=== PATIENT | female | born 1940 | race Caucasian/White ===

== ENCOUNTER → 2024-05-30 14:06 | Outpatient (CLI) | payer MEDICARE, OTHER, SELFPAY | PROVIDERS: PCP Nurse Practitioner; Referring Provider Dermatology MOHS-Micrographic Surgery; Visit Provider Physician Assistant | DX: T81.89XA Other complications of procedures, not elsewhere classified, initial encounter (principal); L98.8 Other specified disorders of the skin and subcutaneous tissue; S81.802A Unspecified open wound, left lower leg, initial encounter; C44.92 Squamous cell carcinoma of skin, unspecified; Z79.82 Long term (current) use of aspirin | CPT/HCPCS: 11042; 99203; 99213 ==

== ENCOUNTER → 2024-06-04 13:37 | Outpatient (CLI) | payer MEDICARE, OTHER, SELFPAY | PROVIDERS: PCP Nurse Practitioner; Referring Provider Dermatology MOHS-Micrographic Surgery; Visit Provider Surgery | DX: T81.89XA Other complications of procedures, not elsewhere classified, initial encounter (principal); L98.8 Other specified disorders of the skin and subcutaneous tissue; S81.802A Unspecified open wound, left lower leg, initial encounter; R60.0 Localized edema | CPT/HCPCS: 29581 ==

== ENCOUNTER → 2024-06-06 10:49 | Outpatient (CLI) | payer MEDICARE, SELFPAY | LOC: WC 10:50 | PROVIDERS: PCP Nurse Practitioner; Referring Provider Dermatology MOHS-Micrographic Surgery; Visit Provider Surgery | DX: T81.89XA Other complications of procedures, not elsewhere classified, initial encounter (principal); S81.802A Unspecified open wound, left lower leg, initial encounter; C44.92 Squamous cell carcinoma of skin, unspecified | CPT/HCPCS: 11042; 99213 ==

== ENCOUNTER → 2024-06-09 10:55 | Outpatient (CLI) | payer MEDICARE, SELFPAY | PROVIDERS: PCP Nurse Practitioner; Referring Provider Nurse Practitioner; Visit Provider Surgery | DX: T81.89XA Other complications of procedures, not elsewhere classified, initial encounter (principal); S81.802A Unspecified open wound, left lower leg, initial encounter; R60.0 Localized edema | CPT/HCPCS: 29581 ==

== ENCOUNTER → 2024-06-13 14:52 | Outpatient (CLI) | payer MEDICARE, SELFPAY | LOC: WC 14:53 | PROVIDERS: PCP Nurse Practitioner; Referring Provider Dermatology MOHS-Micrographic Surgery; Visit Provider Physician Assistant | DX: T81.89XA Other complications of procedures, not elsewhere classified, initial encounter (principal); S81.802A Unspecified open wound, left lower leg, initial encounter; C44.92 Squamous cell carcinoma of skin, unspecified | CPT/HCPCS: 11042; 99213 ==

== ENCOUNTER → 2024-06-20 13:38 | Outpatient (CLI) | payer MEDICARE, SELFPAY | LOC: WC 13:41 | PROVIDERS: PCP Nurse Practitioner; Referring Provider Dermatology MOHS-Micrographic Surgery; Visit Provider Surgery | DX: S81.802A Unspecified open wound, left lower leg, initial encounter (principal); T81.89XA Other complications of procedures, not elsewhere classified, initial encounter; R60.0 Localized edema; C44.92 Squamous cell carcinoma of skin, unspecified | CPT/HCPCS: 11042; 99213 ==

== ENCOUNTER → 2024-07-04 10:37 | Outpatient (CLI) | payer MEDICARE, OTHER, SELFPAY | PROVIDERS: PCP Nurse Practitioner; Referring Provider Nurse Practitioner; Visit Provider Surgery | DX: T81.89XA Other complications of procedures, not elsewhere classified, initial encounter (principal); S81.802A Unspecified open wound, left lower leg, initial encounter; C44.92 Squamous cell carcinoma of skin, unspecified | CPT/HCPCS: 11042; 99213 ==

== ENCOUNTER → 2024-07-11 09:53 | Outpatient (CLI) | payer MEDICARE, OTHER, SELFPAY ==
--- NOTE | 2024-07-11 | OV.WND_ITS ---
PROGRESS NOTE DETAILS PATIENT NAME: SAMANTA RANKIN PATIENT NUMBER: [id number] CLINICIAN: YULISSA CARBALLO RN PATIENT DATE OF : 1940 PHYSICIAN / COLLECTION TEAM LEAD: CLAIRE ESTRADA PA-C PATIENT SUBJECTIVE CHIEF COMPLAINT THIS INFORMATION WAS OBTAINED FROM THE PATIENT. WOUND ON MY LEG GENERAL NOTES DRESSING ON LEFT LEG ALLERGIES SEPTRA, TETRACYCLINE, CLEOCIN HPI THIS INFORMATION WAS OBTAINED FROM THE PATIENT. LOCATION: LLE DURATION: 05/15/24 CONTEXT: SURGICAL THE PATIENT IS AN 83 YEAR OLD FEMALE WITH PMH OF GERD, SCC, BREAST CANCER HERE FOR MOH'S SURGERY WOUND TO LEFT PRE -TIBIAL LEG, REFERRED BY DERMATOLOGY. SHE IS CURRENTLY RECEIVING DRESSING CHANGES WITH HYDROFERA BLUE AND PROMOGRAN WITH PERSONAL COMPRESSION. SHE HAS NOT NOTED ANY REDNESS OR SWELLING NOR HAS HE HAD ANY FEVER OR CHILLS. THE PATIENT IS ON A HIGH PROTEIN DIET. ON EXAM TODAY THERE IS GOOD GRANULATION TISSUE AND MEASUREMENTS ARE IMPROVED, NO SIGN OF INFECTION. THE PATIENT HAS BEEN APPROVED FOR THE USE OF SKIN SUBSTITUTES. LABS: 05/30/24 DUSTIN LEFT 1.25, RIGHT 1.25 MEDICAL HISTORY THIS INFORMATION WAS OBTAINED FROM THE CHART, PATIENT. PATIENT HAS A MEDICAL HISTORY OF: ARTHRITIS GASTRO ESOPH. 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 YES? COMPLETE ALL QUESTIONS.: YES SAMANTA RANKIN [id number] 1940 LOCATION OF CANCER: LEFT BREAST. SKIN CANCER LEFT LOWER LEG SURGICAL HISTORY THIS INFORMATION WAS OBTAINED FROM THE CHART, PATIENT. PATIENT HAS A SURGICAL HISTORY OF: BIOPSY OF BREAST- DENTAL SURGERY - H/O: TUBAL LIGATION- HISTORY OF APPENDECTOMY- HISTORY OF BILATERAL MASTECTOMY- KIDNEY BIOPSY- SURGICAL BIOPSY OF SKIN- ECTOPIC - OBJECTIVE VITALS HEIGHT/LENGTH: 67 IN (170.18 CM), WEIGHT: 159.7 LBS (72.59 KGS), BMI: 25, TEMPERATURE: 99.1 ?F (37.28 ?C), PULSE: 92 BPM, RESPIRATORY RATE: 16 BREATHS/MIN, BLOOD PRESSURE: 124/71 MMHG, PULSE OXIMETRY: 85 %. PHYSICAL EXAM CONSTITUTIONAL: GENERALIZED WEAKNESS. IN NO APPARENT DISTRESS. GOOD ATTENTION TO HYGIENE AND BODY HABITS. ALERT AND ORIENTED X 3. WELL NOURISHED. VITAL SIGNS REVIEWED AND NOTED. BLOOD PRESSURE NORMAL. PULSE RATE AND RHYTHM REGULAR. AFEBRILE. WEIGHT WNL. WELL DEVELOPED, WELL NOURISHED, AND IN NO ACUTE DISTRESS. ALERT AND ORIENTED X3. AMBULATES AND IS ABLE TO CHANGE POSITION WITHOUT ASSISTANCE. ALERT AND ORIENTED X 3. RESPIRATORY: EVEN RESPIRATIONS WITHOUT USE OF ACCESSORY MUSCLES. NO INTERCOASTAL RETRACTIONS NOTED. EVEN AND NON LABORED RESPIRATION. CARDIOVASCULAR: SEE LOWER EXTREMITY ASSESSMENT WHEN APPLICABLE. THERE IS NO PERIPHERAL EDEMA, CYANOSIS OR PALLOR. EXTREMITIES ARE WARM AND WELL PERFUSED. CAPILLARY REFILL IS LESS THAN 2 SECONDS. INTEGUMENTARY (HAIR, SKIN): SEE WOUND DESCRIPTION. NEUROLOGICAL: SENSATION: SYMMETRIC FUNCTION BY INFORMAL OBSERVATION. PSYCHIATRIC: ORIENTATION TO TIME, PLACE AND PERSON: NORMAL AFFECT WITH NORMAL THOUGHT PATTERN. MOOD AND AFFECT: NORMAL AFFECT WITH NORMAL THOUGHT PATTERN. WOUND ASSESSMENT(S) WOUND #1 LEFT LEG - LOWER IS AN ACUTE FULL THICKNESS SURGICAL WOUND ACQUIRED ON 05/15/2024 AND HAS RECEIVED A STATUS OF NOT HEALED. INITIAL WOUND ENCOUNTER MEASUREMENTS ARE 1.1CM LENGTH X 1.1CM WIDTH X 0.1 CM DEPTH, WITH AN AREA OF 1.21 SQ CM AND A VOLUME OF 0.121 CUBIC CM.INITIAL WOUND ENCOUNTER PREVIOUS MEASUREMENTS FROM 07/04/2024 ARE 1.2CM LENGTH X 1.2CM WIDTH X 0.2CM DEPTH, WITH AN AREA OF 1.44 SQ CM AND A VOLUME OF 0.288 CUBIC CM. ADIPOSE IS EXPOSED. NO TUNNELING HAS BEEN NOTED. NO SINUS TRACT HAS BEEN NOTED. NO UNDERMINING HAS BEEN NOTED. THERE IS A MODERATE AMOUNT OF SEROSANGUINEOUS DRAINAGE NOTED WHICH HAS NO ODOR. THE PATIENT REPORTS A WOUND PAIN OF LEVEL 0/10. THE WOUND MARGIN IS ROLLED WOUND BED HAS YES, BRIGHT RED, SPONGY, GRANULATION, YES SLOUGH, NO ESCHAR, NO EPITHELIALIZATION. THE PERIWOUND SKIN EXHIBITED EDEMA. THE PERIWOUND SKIN DID NOT EXHIBIT BRAWNY INDURATION, EXCORIATION, INDURATION, CALLUS, CREPITUS, FLUCTUANCE, RASH, MACERATION, ATROPHIE ARTUR, CYANOSIS, SAMANTA RANKIN [id number] 1940 ECCHYMOSIS, ERYTHEMA, HEMOSIDEROSIS, PALLOR AND RUBOR. THE PERIWOUND SKIN WAS MOIST. THE PERIWOUND SKIN WAS NOT FRIABLE AND DRY/SCALY. THE TEMPERATURE OF THE PERIWOUND SKIN IS WNL. PERIWOUND SKIN DOES NOT EXHIBIT SIGNS OR SYMPTOMS OF INFECTION. LOCAL PULSE IS PALPABLE. 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 A SKIN/SUBCUTANEOUS TISSUE LEVEL SURGICAL DEBRIDEMENT WITH A TOTAL AREA DEBRIDED OF 1.21 SQ CM. WAS PERFORMED BY CLAIRE ESTRADA PA-C. HYPERGRANULATION AND SUBCUTANEOUS WERE REMOVED ALONG WITH DEVITALIZED TISSUE: BIOFILM, FIBRIN AND SLOUGH. THE FOLLOWING INSTRUMENT(S) WERE USED: CURETTE. PAIN CONTROL WAS ACHIEVED USING EMLA LIDOCAINE/PRILOCAINE 2.5%/2.5%. A TIME OUT WAS CONDUCTED PRIOR TO THE START OF THE PROCEDURE. A MINIMAL AMOUNT OF BLEEDING WAS CONTROLLED WITH SILVER NITRATE. THE PATIENT TOLERATED THE PROCEDURE WITH A PAIN LEVEL OF 0 THROUGHOUT AND A PAIN LEVEL OF 0 FOLLOWING THE PROCEDURE. POST DEBRIDEMENT MEASUREMENTS: 1.1CM LENGTH X 1.1CM WIDTH X 0.2CM DEPTH; WITH AN AREA OF 1.21 SQ CM AND A VOLUME OF 0.242 CUBIC CM. ADDITIONAL INFORMATION MUSCLE FASCIA OR BONE REMOVED AND SENT TO PATHOLOGY?: NO PLAN ADDITIONAL ORDERS: HAND HYGIENE HAND HYGIENE - WASH HANDS BEFORE AND AFTER WOUND CARE. CALL THE WOUND CENTER AT [phone] IF YOU HAVE SIGNS OR SYMPTOMS OF INFECTION, FEVER CHILLS OR SHAKES, INCREASED DRAINAGE, INCREASED ODOR OR UNUSUAL REDNESS. AFTER WOUND CENTER HOURS PLEASE NOTIFY YOUR PCP OR GO TO THE EMERGENCY ROOM. CLEANSER CLEANSE WOUND WITH NORMAL SALINE CLEANSE WOUND AND PEDRO LUIS WOUND WITH A NON-CYTOTOXIC WOUND CLEANSER. MAY SHOWER, LEAVE WOUND DRESSING INTACT. COVER WOUND DRESSING WITH A WATERPROOF BARRIER. KEEP DRESSING DRY. NO BATHS PLEASE. PROCEDURE / ANESTHETIC 5% TOPICAL LIDOCAINE TO WOUND BED PRIOR TO PROCEDURE, IN CLINIC ONLY. DRESSING ORDERS APPLY DRESSING(S) AND SECURE WITH: - PROMOGRAN COLLAGEN MOISTENED WITH SALINE SOLUTION OR DISTILLED WATER, HYDROFERA BLUE CLASSIC ( THE STIFF HYDROFERA) MOISTENED WITH SALINE SOLUTION OR DISTILLED WATER FOR 10 SECONDS AND WRING OUT EXCESS MOISTURE, SILICONE TAPE DRESSING CHANGE FREQUENCY CHANGE DRESSING EVERY OTHER DAY. SAMANTA RANKIN [id number] 1940 COMPRESSION/EDEMA CONTROL APPLY KNEE-HIGH GRADIENT COMPRESSION STOCKINGS AT 20-30MMHG - PERSONAL COMPRESSION STOCKINGS DIETARY TAKE VITAMIN C 1000MG BY MOUTH DAILY. TAKE ZINC 25MG BY MOUTH DAILY. INCREASE THE PROTEIN IN YOUR DIET. FOLLOW-UP APPOINTMENTS WE ARE PLACING AN ORDER FOR WOUND SUPPLIES ON YOUR BEHALF WITH [facility]. IF YOU HAVE NOT RECEIVED YOUR ORDER WITHIN 3 BUSINESS DAYS, PLEASE CALL [facility] AT [phone] TO SPEAK WITH A ORAL SURGERY TECHNICIAN OR EMAIL: RETURN APPOINTMENT 1 WEEK SCRIBING ATTESTATION I ATTEST, THE NURSE, THAT I SCRIBED THESE ORDERS FOR THE WOUND CARE PROVIDER. PROVIDER REVIEW AND ATTESTATION: REVIEWED HOSPITAL RECORDS. DISCUSSED THE PLAN OF CARE @ BEDSIDE WITH - PATIENT I AGREE AND ATTEST TO THE ABOVE INFORMATION PROVIDED FROM OTHER LICENSED PROFESSIONALS. PLAN OF CARE: 01. ENSURE/ESTABLISH OPTIMAL BLOOD FLOW : - COMPLETE LOWER EXTREMITY ASSESSMENT STATUS: COMPLETED DATE: 05/30/2024 02. ASSESS FOR/TREAT INFECTION : - EVALUATE FOR SIGNS AND SYMPTOMS OF INFECTION AND DOCUMENT FINDINGS. STATUS: CONTINUED DATE: 07/11/2024 - OBTAIN CULTURE AND SENSITIVITY (CANDS) OR TISSUE CULTURE WHEN INFECTION IS SUSPECTED. (NOTE:) CONSIDER REPEATING WHEN WOUND HEALING <40% AFTER 30 DAYS OF WOUND CARE. STATUS: CONTINUED DATE: 07/11/2024 - ORDER APPROPRIATE ANTIBIOTICS BASED ON PATIENT PRESENTATION AND CULTURE AND SENSITIVITY RESULTS. INSTRUCT PATIENT ON THE IMPORTANCE OF TAKING MEDICATION PRESCRIBED. 03. DEBRIDE WEEKLY OR MORE OFTEN PRN : - EVALUATE PATIENT IN CENTER WEEKLY TO ASSESS WOUND BED AND MARGINS FOR NEED FOR DEBRIDEMENT. STATUS: CONTINUED DATE: 07/11/2024 - DEBRIDEMENT BY ANY METHOD TO REMOVE DEVITALIZED/NECROTIC TISSUE TO PROMOTE HEALING AND PREVENT FURTHER COMPLICATIONS. GOAL IS TO STIMULATE AND/OR MAINTAIN ACUTE PHASE OF WOUND HEALING BY REDUCING BACTERIAL BURDEN AND DEVITALIZED/NON-VIABLE TISSUE. STATUS: CONTINUED DATE: 07/11/2024 04. OPTIMIZE GLUCOSE CONTROL AND NUTRITION : - COMPLETE A NUTRITION RISK ASSESSMENT. STATUS: COMPLETED DATE: 05/30/2024 05. OFFLOADING PLAN : - EVALUATE PLAN FOR OFFLOADING STATUS: CONTINUED DATE: 07/11/2024 06. OPTIMIZE HOST FACTORS: - ASSESS AND REVIEW PATIENT HISTORY FOR WOUND ETIOLOGY, CO-MORBID CONDITIONS, MEDICATION REGIME, AND SMOKING HISTORY. STATUS: COMPLETED DATE: 05/30/2024 - ASSESS LIFESTYLE FACTORS SUCH SMOKING, ALCOHOL/DRUG ABUSE, EATING HABITS/MALNUTRITION AND ACTIVITY LEVEL. 07. DRESSING SELECTION : - EVALUATE FOR DRESSING-RELATED FACTORS, SUCH AVAILABILITY, WEAR TIME, ADAPTABILITY AND USE TO BETTER OPTIMIZE WOUND HEALING AND PATIENT COMPLIANCE. STATUS: CONTINUED DATE: 07/11/2024 - CHOOSE TOPICAL TREATMENTS AND/OR DRESSING BASED ON WOUND TYPE AND APPEARANCE, PERIWOUND SKIN SAMANTA RANKIN [id number] 1940 CONDITION, WOUND SIZE AND DEPTH, ANATOMIC LOCATION, VOLUME OF EXUDATE, EDEMA IN THE LOWER EXTREMITIES, AND RISK OR PRESENCE OF INFECTION. STATUS: CONTINUED DATE: 07/11/2024 08. ADVANCED MODALITIES : - EVALUATE FOR APPROPRIATENESS OF HYPERBARIC OXYGEN THERAPY. STATUS: COMPLETED DATE: 05/30/2024 09. FALL PREVENTION : - COMPLETE FALL ASSESSMENT. STATUS: COMPLETED DATE: 05/30/2024 10. PAIN MANAGEMENT : - COMPLETE PAIN ASSESSMENT STATUS: COMPLETED DATE: 05/30/2024 11. MEASURABLE GOALS FOR WOUND HEALING AND/OR HYPERBARIC OXYGEN THERAPY : - REVIEWED, NOT APPLICABLE 12. DURATION/FREQUENCY OF WOUND CARE VISITS : - 1X WEEKLY FOR 30 DAYS STATUS: CONTINUED DATE: 07/11/2024 CONTINUE PROMOGRAN WITH HYDROFERA BLUE CLASSIC PERSONAL COMPRESSION CONSIDER SKIN SUBSTITUTE IF NO IMPROVEMENT ELECTRONIC SIGNATURE(S) SIGNED BY: DATE: CLAIRE ESTRADA PA-C 07/14/2024 00:35:14 (PT) ENTERED BY: CLAIRE ESTRDAA PA-C ON 07/14/2024 00:34:55 (PT) SAMANTA RANKIN [id number] 1940
== END ==
PROVIDERS: PCP Nurse Practitioner; Referring Provider Nurse Practitioner; Visit Provider Physician Assistant
DX: T81.89XA Other complications of procedures, not elsewhere classified, initial encounter (principal); S81.802A Unspecified open wound, left lower leg, initial encounter; C44.92 Squamous cell carcinoma of skin, unspecified; R60.0 Localized edema
CPT/HCPCS: 11042; 99213

== ENCOUNTER → 2024-07-18 11:13 | Outpatient (CLI) | payer MEDICARE, OTHER, SELFPAY ==
--- NOTE | 2024-07-18 | OV.WND_ITS ---
PROGRESS NOTE DETAILS PATIENT NAME: SAMANTA RANKIN PATIENT NUMBER: [id number] CLINICIAN: HEMANT KEYES R.N. PATIENT DATE OF : 1940 PHYSICIAN / TURNING MACHINE OPERATOR HELPER: CLAIRE ESTRADA PA-C PATIENT SUBJECTIVE CHIEF COMPLAINT THIS INFORMATION WAS OBTAINED FROM THE PATIENT. EVERYTHING IS FINE, NO CONCERNS. GENERAL NOTES SURGICAL WOUND OF LEFT LEG. ALLERGIES SEPTRA, TETRACYCLINE, CLEOCIN HPI THIS INFORMATION WAS OBTAINED FROM THE PATIENT. LOCATION: LLE DURATION: 05/15/24 CONTEXT: SURGICAL THE PATIENT IS AN 83 YEAR OLD FEMALE WITH PMH OF GERD, SCC, BREAST CANCER HERE FOR MOH'S SURGERY WOUND TO LEFT PRE -TIBIAL LEG, REFERRED BY DERMATOLOGY. SHE IS CURRENTLY RECEIVING DRESSING CHANGES WITH HYDROFERA BLUE AND PROMOGRAN WITH PERSONAL COMPRESSION. SHE HAS NOT NOTED ANY REDNESS OR SWELLING. SHE HAS A LOW GRADE TEMP TODAY OF WHICH SHE WAS UNAWARE AND SHE DENIES ANY COLD SYMPTOMS OR CHANGES TO UNDERLYING HEALTH. THE PATIENT IS ON A HIGH PROTEIN DIET. ON EXAM TODAY THERE IS GOOD GRANULATION TISSUE AND MEASUREMENTS ARE IMPROVED, NO SIGN OF INFECTION. WOUND SHOWS 86% IMPROVEMENT SINCE INITIATION OF WOUND CARE. THE PATIENT HAS BEEN APPROVED FOR THE USE OF SKIN SUBSTITUTES. LABS: 05/30/24 DUSTIN LEFT 1.25, RIGHT 1.25 MEDICAL HISTORY THIS INFORMATION WAS OBTAINED FROM THE CHART, PATIENT. PATIENT HAS A MEDICAL HISTORY OF: ARTHRITIS GASTRO ESOPH. REFLUX DISEASE (GERD) HEARING LOSS MALIGNANT TUMOR OF BREAST SKIN CANCER - 03/11/2024 BREAST CANCER - 05/14/1977 ADDITIONAL INFORMATION SAMANTA RANKIN [id number] 1940 DOES PATIENT HAVE A HISTORY OF CANCER? YES? COMPLETE ALL QUESTIONS.: YES LOCATION OF CANCER: LEFT BREAST. SKIN CANCER LEFT LOWER LEG SURGICAL HISTORY THIS INFORMATION WAS OBTAINED FROM THE CHART, PATIENT. PATIENT HAS A SURGICAL HISTORY OF: BIOPSY OF BREAST- DENTAL SURGERY - H/O: TUBAL LIGATION- HISTORY OF APPENDECTOMY- HISTORY OF BILATERAL MASTECTOMY- KIDNEY BIOPSY- SURGICAL BIOPSY OF SKIN- ECTOPIC - OBJECTIVE VITALS HEIGHT/LENGTH: 67 IN (170.18 CM), WEIGHT: 159.7 LBS (72.59 KGS), BMI: 25, TEMPERATURE: 99.3 ?F (37.39 ?C), PULSE: 87 BPM, RESPIRATORY RATE: 16 BREATHS/MIN, BLOOD PRESSURE: 128/62 MMHG, PULSE OXIMETRY: 98 %. PHYSICAL EXAM CONSTITUTIONAL: GENERALIZED WEAKNESS. IN NO APPARENT DISTRESS. GOOD ATTENTION TO HYGIENE AND BODY HABITS. ALERT AND ORIENTED X 3. WELL NOURISHED. VITAL SIGNS REVIEWED AND NOTED. BLOOD PRESSURE NORMAL. PULSE RATE AND RHYTHM REGULAR. AFEBRILE. WEIGHT WNL. WELL DEVELOPED, WELL NOURISHED, AND IN NO ACUTE DISTRESS. ALERT AND ORIENTED X3. AMBULATES AND IS ABLE TO CHANGE POSITION WITHOUT ASSISTANCE. ALERT AND ORIENTED X 3. RESPIRATORY: EVEN RESPIRATIONS WITHOUT USE OF ACCESSORY MUSCLES. NO INTERCOASTAL RETRACTIONS NOTED. EVEN AND NON LABORED RESPIRATION. CARDIOVASCULAR: SEE LOWER EXTREMITY ASSESSMENT WHEN APPLICABLE. THERE IS NO PERIPHERAL EDEMA, CYANOSIS OR PALLOR. EXTREMITIES ARE WARM AND WELL PERFUSED. CAPILLARY REFILL IS LESS THAN 2 SECONDS. INTEGUMENTARY (HAIR, SKIN): SEE WOUND DESCRIPTION. NEUROLOGICAL: SENSATION: SYMMETRIC FUNCTION BY INFORMAL OBSERVATION. PSYCHIATRIC: ORIENTATION TO TIME, PLACE AND PERSON: NORMAL AFFECT WITH NORMAL THOUGHT PATTERN. MOOD AND AFFECT: NORMAL AFFECT WITH NORMAL THOUGHT PATTERN. WOUND ASSESSMENT(S) WOUND #1 LEFT LEG - LOWER IS AN ACUTE FULL THICKNESS SURGICAL WOUND ACQUIRED ON 05/15/2024 AND HAS RECEIVED A STATUS OF NOT HEALED. INITIAL WOUND ENCOUNTER MEASUREMENTS ARE 0.6CM LENGTH X 1CM WIDTH X 0.1 CM DEPTH, WITH AN AREA OF 0.6 SQ CM AND A VOLUME OF 0.06 CUBIC CM.INITIAL WOUND ENCOUNTER PREVIOUS MEASUREMENTS FROM 07/11/2024 ARE 1.1CM LENGTH X 1.1CM WIDTH X 0.1CM DEPTH, WITH AN AREA OF 1.21 SQ CM AND A VOLUME OF 0.121 CUBIC CM. ADIPOSE IS EXPOSED. NO TUNNELING HAS BEEN NOTED. NO SINUS TRACT HAS BEEN NOTED. NO UNDERMINING HAS BEEN NOTED. THERE IS A MODERATE AMOUNT OF SEROSANGUINEOUS DRAINAGE NOTED WHICH HAS NO ODOR. THE PATIENT REPORTS A WOUND PAIN OF LEVEL 0/10. THE WOUND MARGIN IS ATTACHED WOUND BED HAS YES, BRIGHT RED, SPONGY, GRANULATION, YES SLOUGH, NO ESCHAR, NO EPITHELIALIZATION. THE PERIWOUND SKIN EXHIBITED EDEMA AND MACERATION. THE PERIWOUND SKIN DID NOT EXHIBIT PADMAJA RANKIN SAMANTA Delphine [id number] 1940 INDURATION, EXCORIATION, INDURATION, CALLUS, CREPITUS, FLUCTUANCE, RASH, ATROPHIE ARTUR, CYANOSIS, ECCHYMOSIS, ERYTHEMA, HEMOSIDEROSIS, PALLOR AND RUBOR. THE PERIWOUND SKIN WAS MOIST. THE PERIWOUND SKIN WAS NOT FRIABLE AND DRY/SCALY. THE TEMPERATURE OF THE PERIWOUND SKIN IS WNL. PERIWOUND SKIN DOES NOT EXHIBIT SIGNS OR SYMPTOMS OF INFECTION. LOCAL PULSE IS PALPABLE. 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 A SKIN/SUBCUTANEOUS TISSUE LEVEL SURGICAL DEBRIDEMENT WITH A TOTAL AREA DEBRIDED OF 0.6 SQ CM. WAS PERFORMED BY CLAIRE ESTRADA PA-C. SUBCUTANEOUS WAS REMOVED ALONG WITH DEVITALIZED TISSUE: BIOFILM AND SLOUGH. THE FOLLOWING INSTRUMENT(S) WERE USED: CURETTE. PAIN CONTROL WAS ACHIEVED USING EMLA LIDOCAINE/PRILOCAINE 2.5%/2.5%. A TIME OUT WAS CONDUCTED PRIOR TO THE START OF THE PROCEDURE. A MINIMAL AMOUNT OF BLEEDING WAS CONTROLLED WITH PRESSURE. THE PROCEDURE WAS TOLERATED WELL WITH A PAIN LEVEL OF 0 THROUGHOUT AND A PAIN LEVEL OF 0 FOLLOWING THE PROCEDURE. POST DEBRIDEMENT MEASUREMENTS: 0.6CM LENGTH X 1CM WIDTH X 0.2CM DEPTH; WITH AN AREA OF 0.6 SQ CM AND A VOLUME OF 0.12 CUBIC CM. ADDITIONAL INFORMATION MUSCLE FASCIA OR BONE REMOVED AND SENT TO PATHOLOGY?: NO PLAN WOUND ORDERS: WOUND #1 LEFT LEG - LOWER HAND HYGIENE HAND HYGIENE - WASH HANDS BEFORE AND AFTER WOUND CARE. CALL THE WOUND CENTER AT [phone] IF YOU HAVE SIGNS OR SYMPTOMS OF INFECTION, FEVER CHILLS OR SHAKES, INCREASED DRAINAGE, INCREASED ODOR OR UNUSUAL REDNESS. AFTER WOUND CENTER HOURS PLEASE NOTIFY YOUR PCP OR GO TO THE EMERGENCY ROOM. CLEANSER CLEANSE WOUND WITH NORMAL SALINE CLEANSE WOUND AND PEDRO LUIS WOUND WITH A NON-CYTOTOXIC WOUND CLEANSER. MAY SHOWER, LEAVE WOUND DRESSING INTACT. COVER WOUND DRESSING WITH A WATERPROOF BARRIER. KEEP DRESSING DRY. NO BATHS PLEASE. PROCEDURE / ANESTHETIC 5% TOPICAL LIDOCAINE TO WOUND BED PRIOR TO PROCEDURE, IN CLINIC ONLY. DRESSING ORDERS APPLY DRESSING(S) AND SECURE WITH: - PROMOGRAN COLLAGEN MOISTENED WITH SALINE SOLUTION OR DISTILLED WATER, HYDROFERA BLUE CLASSIC (THE STIFF HYDROFERA) MOISTENED WITH SALINE SOLUTION OR DISTILLED WATER FOR 10 SECONDS AND WRING OUT EXCESS MOISTURE, SILICONE TAPE. SAMANTA RANKIN [id number] 1940 DRESSING CHANGE FREQUENCY CHANGE DRESSING EVERY OTHER DAY. CHANGE DRESSING IF IT BECOMES SOILED OR WET. ADDITIONAL ORDERS: COMPRESSION/EDEMA CONTROL APPLY KNEE-HIGH GRADIENT COMPRESSION STOCKINGS AT 20-30MMHG - PERSONAL COMPRESSION STOCKINGS DIETARY TAKE VITAMIN C 1000MG BY MOUTH DAILY. TAKE ZINC 25MG BY MOUTH DAILY. INCREASE THE PROTEIN IN YOUR DIET. FOLLOW-UP APPOINTMENTS RETURN APPOINTMENT 1 WEEK SCRIBING ATTESTATION I ATTEST, THE NURSE, THAT I SCRIBED THESE ORDERS FOR THE WOUND CARE PROVIDER. PROVIDER REVIEW AND ATTESTATION: REVIEWED HOSPITAL RECORDS. DISCUSSED THE PLAN OF CARE @ BEDSIDE WITH - PATIENT I AGREE AND ATTEST TO THE ABOVE INFORMATION PROVIDED FROM OTHER LICENSED PROFESSIONALS. PLAN OF CARE: 01. ENSURE/ESTABLISH OPTIMAL BLOOD FLOW : - COMPLETE LOWER EXTREMITY ASSESSMENT STATUS: COMPLETED DATE: 05/30/2024 02. ASSESS FOR/TREAT INFECTION : - EVALUATE FOR SIGNS AND SYMPTOMS OF INFECTION AND DOCUMENT FINDINGS. STATUS: CONTINUED DATE: 07/11/2024 - OBTAIN CULTURE AND SENSITIVITY (CANDS) OR TISSUE CULTURE WHEN INFECTION IS SUSPECTED. (NOTE:) CONSIDER REPEATING WHEN WOUND HEALING <40% AFTER 30 DAYS OF WOUND CARE. STATUS: CONTINUED DATE: 07/11/2024 - ORDER APPROPRIATE ANTIBIOTICS BASED ON PATIENT PRESENTATION AND CULTURE AND SENSITIVITY RESULTS. INSTRUCT PATIENT ON THE IMPORTANCE OF TAKING MEDICATION PRESCRIBED. 03. DEBRIDE WEEKLY OR MORE OFTEN PRN : - EVALUATE PATIENT IN CENTER WEEKLY TO ASSESS WOUND BED AND MARGINS FOR NEED FOR DEBRIDEMENT. STATUS: CONTINUED DATE: 07/11/2024 - DEBRIDEMENT BY ANY METHOD TO REMOVE DEVITALIZED/NECROTIC TISSUE TO PROMOTE HEALING AND PREVENT FURTHER COMPLICATIONS. GOAL IS TO STIMULATE AND/OR MAINTAIN ACUTE PHASE OF WOUND HEALING BY REDUCING BACTERIAL BURDEN AND DEVITALIZED/NON-VIABLE TISSUE. STATUS: CONTINUED DATE: 07/11/2024 04. OPTIMIZE GLUCOSE CONTROL AND NUTRITION : - COMPLETE A NUTRITION RISK ASSESSMENT. STATUS: COMPLETED DATE: 05/30/2024 05. OFFLOADING PLAN : - EVALUATE PLAN FOR OFFLOADING STATUS: CONTINUED DATE: 07/11/2024 06. OPTIMIZE HOST FACTORS: - ASSESS AND REVIEW PATIENT HISTORY FOR WOUND ETIOLOGY, CO-MORBID CONDITIONS, MEDICATION REGIME, AND SMOKING HISTORY. STATUS: COMPLETED DATE: 05/30/2024 - ASSESS LIFESTYLE FACTORS SUCH SMOKING, ALCOHOL/DRUG ABUSE, EATING HABITS/MALNUTRITION AND ACTIVITY LEVEL. 07. DRESSING SELECTION : - EVALUATE FOR DRESSING-RELATED FACTORS, SUCH AVAILABILITY, WEAR TIME, ADAPTABILITY AND USE TO BETTER OPTIMIZE WOUND HEALING AND PATIENT COMPLIANCE. STATUS: CONTINUED DATE: 07/11/2024 SAMANTA RANKIN [id number] 1940 - CHOOSE TOPICAL TREATMENTS AND/OR DRESSING BASED ON WOUND TYPE AND APPEARANCE, PERIWOUND SKIN CONDITION, WOUND SIZE AND DEPTH, ANATOMIC LOCATION, VOLUME OF EXUDATE, EDEMA IN THE LOWER EXTREMITIES, AND RISK OR PRESENCE OF INFECTION. STATUS: CONTINUED DATE: 07/11/2024 08. ADVANCED MODALITIES : - EVALUATE FOR APPROPRIATENESS OF HYPERBARIC OXYGEN THERAPY. STATUS: COMPLETED DATE: 05/30/2024 09. FALL PREVENTION : - COMPLETE FALL ASSESSMENT. STATUS: COMPLETED DATE: 05/30/2024 10. PAIN MANAGEMENT : - COMPLETE PAIN ASSESSMENT STATUS: COMPLETED DATE: 05/30/2024 11. MEASURABLE GOALS FOR WOUND HEALING AND/OR HYPERBARIC OXYGEN THERAPY : - REVIEWED, NOT APPLICABLE 12. DURATION/FREQUENCY OF WOUND CARE VISITS : - 1X WEEKLY FOR 30 DAYS STATUS: CONTINUED DATE: 07/11/2024 DOING WELL DEBRIDEMENT TODAY CONTINUE PROMOGRAN WITH HYDROFERA BLUE CLASSIC, PERSONAL COMPRESSION RECHECK 1 WEEK ELECTRONIC SIGNATURE(S) SIGNED BY: DATE: CLAIRE ESTRADA PA-C 07/18/2024 12:45:54 (PT) ENTERED BY: CLAIRE ESTRADA PA-C ON 07/18/2024 12:45:39 (PT) SAMANTA RANKIN [id number] 1940
== END ==
PROVIDERS: PCP Nurse Practitioner; Referring Provider Dermatology MOHS-Micrographic Surgery; Visit Provider Physician Assistant
DX: T81.89XA Other complications of procedures, not elsewhere classified, initial encounter (principal); S81.802A Unspecified open wound, left lower leg, initial encounter; R60.0 Localized edema; C44.92 Squamous cell carcinoma of skin, unspecified
CPT/HCPCS: 11042; 99213

== ENCOUNTER → 2024-07-25 10:48 | Outpatient (CLI) | payer MEDICARE, OTHER, SELFPAY | PROVIDERS: PCP Nurse Practitioner; Referring Provider Dermatology MOHS-Micrographic Surgery; Visit Provider Physician Assistant | DX: T81.89XA Other complications of procedures, not elsewhere classified, initial encounter (principal); S81.802A Unspecified open wound, left lower leg, initial encounter; C44.92 Squamous cell carcinoma of skin, unspecified; R60.0 Localized edema | CPT/HCPCS: 11042; 99213 ==

== ENCOUNTER → 2024-08-01 10:42 | Outpatient (CLI) | payer MEDICARE, OTHER, SELFPAY ==
--- NOTE | 2024-08-01 | OV.WND_ITS ---
PROGRESS NOTE DETAILS PATIENT NAME: SAMANTA RANKIN PATIENT NUMBER: [id number] CLINICIAN: ROSCOE RUSHING RN PATIENT DATE OF : 1940 PHYSICIAN / MUSCULOSKELETAL PHYSICIAN: CLAIRE ESTRADA PA-C PATIENT SUBJECTIVE CHIEF COMPLAINT THIS INFORMATION WAS OBTAINED FROM THE PATIENT. I THINK IT'S ALMOST CLOSED. GENERAL NOTES SURGICAL WOUND ON LEFT LEG. ALLERGIES SEPTRA, TETRACYCLINE, CLEOCIN HPI THIS INFORMATION WAS OBTAINED FROM THE PATIENT. LOCATION: LLE DURATION: 05/15/24 CONTEXT: SURGICAL THE PATIENT IS AN 83 YEAR OLD FEMALE WITH PMH OF GERD, SCC, BREAST CANCER HERE FOR [facility] SURGERY WOUND TO LEFT PRE -TIBIAL LEG, REFERRED BY DERMATOLOGY. SHE IS CURRENTLY RECEIVING DRESSING CHANGES WITH HYDROFERA BLUE AND PROMOGRAN WITH PERSONAL COMPRESSION. SHE HAS NOT NOTED ANY REDNESS OR SWELLING. SHE DENIES FEVERS, CHILLS OR CHANGES TO UNDERLYING HEALTH. THE PATIENT IS ON A HIGH PROTEIN DIET. ON EXAM TODAY THERE IS GOOD GRANULATION TISSUE AND MEASUREMENTS ARE IMPROVED, NO SIGN OF INFECTION. PERIWOUND RASH HAS RESOLVED WITH TRIAMCINOLONE. THE PATIENT HAS BEEN APPROVED FOR THE USE OF SKIN SUBSTITUTES. LABS: 05/30/24 DUSTIN LEFT 1.25, RIGHT 1.25 FAMILY HISTORY THIS INFORMATION WAS OBTAINED FROM THE PATIENT. CANCER- NO HISTORY DIABETES- NO HISTORY HEART DISEASE- NO HISTORY HEREDITARY SPHEROCYTOSIS- NO HISTORY HYPERTENSION- NO HISTORY KIDNEY DISEASE- NO HISTORY LUNG DISEASE- NO HISTORY STROKE- NO HISTORY SOCIAL HISTORY SAMANTA RANKIN [id number] 1940 THIS INFORMATION WAS OBTAINED FROM THE CHART, PATIENT. FORMER SMOKER ALCOHOL USE: LESS THAN 1 DRINK PER DAY MEDICAL HISTORY THIS INFORMATION WAS OBTAINED FROM THE CHART, PATIENT. PATIENT HAS A MEDICAL HISTORY OF: ARTHRITIS GASTRO ESOPH. 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 YES? COMPLETE ALL QUESTIONS.: YES LOCATION OF CANCER: LEFT BREAST. SKIN CANCER LEFT LOWER LEG SURGICAL HISTORY THIS INFORMATION WAS OBTAINED FROM THE CHART, PATIENT. PATIENT HAS A SURGICAL HISTORY OF: BIOPSY OF BREAST- DENTAL SURGERY - H/O: TUBAL LIGATION- HISTORY OF APPENDECTOMY- HISTORY OF BILATERAL MASTECTOMY- KIDNEY BIOPSY- SURGICAL BIOPSY OF SKIN- ECTOPIC - REVIEW OF SYSTEMS (ROS) THIS INFORMATION WAS OBTAINED FROM THE PATIENT. COMPLAINTS AND SYMPTOMS PATIENT COM PLAINS OF: CO-MORBID CONDITIONS: NEUROPATHY CONSTITUTIONAL SYMPTOMS (GENERAL HEALTH): FEVER ( LOW GRADE FEVER) PATIENT DENIES COM PLAINTS OR SY M PTOM S RELATED TO: CARDIOVASCULAR (CENTRAL): CHEST PAIN, DYSPNEA ON EXERTION CONSTITUTIONAL SYMPTOMS (GENERAL HEALTH): CHILLS PRIOR WOUND HISTORY: BLEEDING, DRAINAGE, ERYTHEMA, PAIN RESPIRATORY: COUGH, SHORTNESS OF BREATH OBJECTIVE VITALS HEIGHT/LENGTH: 67 IN (170.18 CM), WEIGHT: 159.7 LBS (72.59 KGS), BMI: 25, TEMPERATURE: 98.7 ?F SAMANTA RANKIN [id number] 1940 (37.06 ?C), PULSE: 80 BPM, RESPIRATORY RATE: 16 BREATHS/MIN, BLOOD PRESSURE: 143/73 MMHG, PULSE OXIMETRY: 97 %. PHYSICAL EXAM CONSTITUTIONAL: GENERALIZED WEAKNESS. IN NO APPARENT DISTRESS. GOOD ATTENTION TO HYGIENE AND BODY HABITS. ALERT AND ORIENTED X 3. WELL NOURISHED. VITAL SIGNS REVIEWED AND NOTED. BLOOD PRESSURE NORMAL. PULSE RATE AND RHYTHM REGULAR. AFEBRILE. WEIGHT WNL. WELL DEVELOPED, WELL NOURISHED, AND IN NO ACUTE DISTRESS. ALERT AND ORIENTED X3. AMBULATES AND IS ABLE TO CHANGE POSITION WITHOUT ASSISTANCE. ALERT AND ORIENTED X 3. RESPIRATORY: EVEN RESPIRATIONS WITHOUT USE OF ACCESSORY MUSCLES. NO INTERCOASTAL RETRACTIONS NOTED. EVEN AND NON LABORED RESPIRATION. CARDIOVASCULAR: SEE LOWER EXTREMITY ASSESSMENT WHEN APPLICABLE. THERE IS NO PERIPHERAL EDEMA, CYANOSIS OR PALLOR. EXTREMITIES ARE WARM AND WELL PERFUSED. CAPILLARY REFILL IS LESS THAN 2 SECONDS. INTEGUMENTARY (HAIR, SKIN): SEE WOUND DESCRIPTION. NEUROLOGICAL: SENSATION: SYMMETRIC FUNCTION BY INFORMAL OBSERVATION. PSYCHIATRIC: ORIENTATION TO TIME, PLACE AND PERSON: NORMAL AFFECT WITH NORMAL THOUGHT PATTERN. MOOD AND AFFECT: NORMAL AFFECT WITH NORMAL THOUGHT PATTERN. ADDITIONAL INFORMATION THE PATIENT'S POTENTIAL TO HEAL IS: GOOD. LOWER EXTREMITY ASSESSMENT EDEMA ASSESSMENT: LEFT EXTREMITY: CALF MEASUREMENT 38 CM FROM HEEL WITH LEFT MEASUREMENT OF 38 CM ANKLE MEASUREMENT 5 CM FROM HEEL BONE WITH LEFT MEASUREMENT OF 20.5 CM FOOT MEASUREMENT 12 CM FROM HEEL WITH LEFT MEASUREMENT OF 20.5 CM VASCULAR ASSESSMENT LEFT EXTREMITY PULSES: DORSALIS PEDIS: PALPABLE LEFT EXTREMITY COLORS, HAIR GROWTH, AND CONDITIONS: EXTREMITY COLOR: WNL HAIR GROWTH ON EXTREMITY: YES TEMPERATURE OF EXTREMITY: WARM CAPILARY REFILL: < 3 SECONDS RIGHT EXTREMITY COLORS, HAIR GROWTH, AND CONDITIONS: EXTREMITY COLOR: WNL HAIR GROWTH ON EXTREMITY: YES TEMPERATURE OF EXTREMITY: WARM CAPILARY REFILL: < 3 SECONDS WOUND ASSESSMENT(S) WOUND #1 LEFT LEG - LOWER IS AN ACUTE FULL THICKNESS SURGICAL WOUND ACQUIRED ON 05/15/2024 AND HAS RECEIVED A STATUS OF NOT HEALED. INITIAL WOUND ENCOUNTER MEASUREMENTS ARE 0.1CM LENGTH X 0.1CM WIDTH X 0.1 CM DEPTH, WITH AN AREA OF 0.01 SQ CM AND A VOLUME OF 0.001 CUBIC CM.INITIAL WOUND ENCOUNTER PREVIOUS MEASUREMENTS FROM 07/25/2024 ARE 0.5CM LENGTH X 0.4CM WIDTH X 0.1CM DEPTH, WITH AN AREA OF 0.2 SQ CM AND A VOLUME OF 0.02 CUBIC CM. ADIPOSE IS EXPOSED. NO TUNNELING HAS BEEN NOTED. NO SINUS TRACT HAS BEEN NOTED. NO UNDERMINING HAS BEEN NOTED. THERE IS A SCANT AMOUNT OF SEROSANGUINEOUS DRAINAGE NOTED WHICH HAS NO ODOR. THE PATIENT REPORTS A WOUND PAIN OF LEVEL 0/10. THE WOUND MARGIN IS ATTACHED WOUND BED HAS YES, BRIGHT RED, FIRM, GRANULATION, YES SLOUGH, NO ESCHAR, YES EPITHELIALIZATION. THE PERIWOUND SKIN EXHIBITED EDEMA. THE PERIWOUND SKIN DID NOT EXHIBIT BRAWNY INDURATION, EXCORIATION, INDURATION, CALLUS, CREPITUS, FLUCTUANCE, RASH, MACERATION, ATROPHIE ARTUR, CYANOSIS, ECCHYMOSIS, ERYTHEMA, HEMOSIDEROSIS, PALLOR AND RUBOR. THE PERIWOUND SKIN WAS MOIST. THE PERIWOUND SAMANTA RANKIN [id number] 1940 SKIN WAS NOT FRIABLE AND DRY/SCALY. THE TEMPERATURE OF THE PERIWOUND SKIN IS WNL. PERIWOUND SKIN DOES NOT EXHIBIT SIGNS OR SYMPTOMS OF INFECTION. LOCAL PULSE IS PALPABLE. ADDITIONAL INFORMATION OTHER DEVITALIZED TISSUE PRESENT: BIOFILM DUSTIN/VASCULAR COMPLETED?: DUSTIN 05/30/24 RESULTS?: L :1.25, R: 1. 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 A SELECTIVE DEBRIDEMENT WITH A TOTAL AREA DEBRIDED OF 0.01 SQ CM. WAS PERFORMED BY CLAIRE ESTRADA PA-C. SUBCUTANEOUS WAS REMOVED ALONG WITH DEVITALIZED TISSUE: BIOFILM, EXUDATE AND SLOUGH. THE FOLLOWING INSTRUMENT(S) WERE USED: CURETTE. PAIN CONTROL WAS ACHIEVED USING EMLA LIDOCAINE/PRILOCAINE 2.5%/2.5%. A TIME OUT WAS CONDUCTED PRIOR TO THE START OF THE PROCEDURE. A MINIMAL AMOUNT OF BLEEDING WAS CONTROLLED WITH PRESSURE. THE PROCEDURE WAS TOLERATED WELL WITH A PAIN LEVEL OF 0 THROUGHOUT AND A PAIN LEVEL OF 0 FOLLOWING THE PROCEDURE. POST DEBRIDEMENT MEASUREMENTS: 0.1CM LENGTH X 0.1CM WIDTH X 0.1CM DEPTH; WITH AN AREA OF 0.01 SQ CM AND A VOLUME OF 0.001 CUBIC CM. PLAN WOUND ORDERS: WOUND #1 LEFT LEG - LOWER HAND HYGIENE HAND HYGIENE - WASH HANDS BEFORE AND AFTER WOUND CARE. CALL THE WOUND CENTER AT [phone] IF YOU HAVE SIGNS OR SYMPTOMS OF INFECTION, FEVER CHILLS OR SHAKES, INCREASED DRAINAGE, INCREASED ODOR OR UNUSUAL REDNESS. AFTER WOUND CENTER HOURS PLEASE NOTIFY YOUR PCP OR GO TO THE EMERGENCY ROOM. CLEANSER CLEANSE WOUND WITH NORMAL SALINE CLEANSE WOUND AND PEDRO LUIS WOUND WITH A NON-CYTOTOXIC WOUND CLEANSER. MAY SHOWER, LEAVE WOUND DRESSING INTACT. COVER WOUND DRESSING WITH A WATERPROOF BARRIER. KEEP DRESSING DRY. NO BATHS PLEASE. PROCEDURE / ANESTHETIC 5% TOPICAL LIDOCAINE TO WOUND BED PRIOR TO PROCEDURE, IN CLINIC ONLY. TOPICAL TREATMENTS OTHER ORDER: - OVER THE COUNTER HYDROCORTISONE CREAM TO RASH WITH EACH DRESSING CHANGE. DRESSING ORDERS APPLY DRESSING(S) AND SECURE WITH: - HYDROFERA BLUE READY FOAM (NO NEED TO MOISTEN). SILICONE TAPE. DRESSING CHANGE FREQUENCY CHANGE DRESSING EVERY OTHER DAY. CHANGE DRESSING IF IT BECOMES SOILED OR WET. ADDITIONAL ORDERS: SAMANTA RANKIN [id number] 1940 COMPRESSION/EDEMA CONTROL APPLY KNEE-HIGH GRADIENT COMPRESSION STOCKINGS AT 20-30MMHG - PERSONAL COMPRESSION STOCKINGS DIETARY TAKE VITAMIN C 1000MG BY MOUTH DAILY. TAKE ZINC 25MG BY MOUTH DAILY. INCREASE THE PROTEIN IN YOUR DIET. FOLLOW-UP APPOINTMENTS RETURN APPOINTMENT 1 WEEK SCRIBING ATTESTATION I ATTEST, THE NURSE, THAT I SCRIBED THESE ORDERS FOR THE WOUND CARE PROVIDER. PROVIDER REVIEW AND ATTESTATION: REVIEWED HOSPITAL RECORDS. DISCUSSED THE PLAN OF CARE @ BEDSIDE WITH - PATIENT I AGREE AND ATTEST TO THE ABOVE INFORMATION PROVIDED FROM OTHER LICENSED PROFESSIONALS. PLAN OF CARE: 01. ENSURE/ESTABLISH OPTIMAL BLOOD FLOW : - COMPLETE LOWER EXTREMITY ASSESSMENT STATUS: COMPLETED DATE: 05/30/2024 02. ASSESS FOR/TREAT INFECTION : - EVALUATE FOR SIGNS AND SYMPTOMS OF INFECTION AND DOCUMENT FINDINGS. STATUS: CONTINUED DATE: 08/01/2024 - OBTAIN CULTURE AND SENSITIVITY (CANDS) OR TISSUE CULTURE WHEN INFECTION IS SUSPECTED. (NOTE:) CONSIDER REPEATING WHEN WOUND HEALING <40% AFTER 30 DAYS OF WOUND CARE. STATUS: CONTINUED DATE: 08/01/2024 - ORDER APPROPRIATE ANTIBIOTICS BASED ON PATIENT PRESENTATION AND CULTURE AND SENSITIVITY RESULTS. INSTRUCT PATIENT ON THE IMPORTANCE OF TAKING MEDICATION PRESCRIBED. 03. DEBRIDE WEEKLY OR MORE OFTEN PRN : - EVALUATE PATIENT IN CENTER WEEKLY TO ASSESS WOUND BED AND MARGINS FOR NEED FOR DEBRIDEMENT. STATUS: CONTINUED DATE: 08/01/2024 - DEBRIDEMENT BY ANY METHOD TO REMOVE DEVITALIZED/NECROTIC TISSUE TO PROMOTE HEALING AND PREVENT FURTHER COMPLICATIONS. GOAL IS TO STIMULATE AND/OR MAINTAIN ACUTE PHASE OF WOUND HEALING BY REDUCING BACTERIAL BURDEN AND DEVITALIZED/NON-VIABLE TISSUE. STATUS: CONTINUED DATE: 08/01/2024 04. OPTIMIZE GLUCOSE CONTROL AND NUTRITION : - COMPLETE A NUTRITION RISK ASSESSMENT. STATUS: COMPLETED DATE: 05/30/2024 05. OFFLOADING PLAN : - EVALUATE PLAN FOR OFFLOADING STATUS: CONTINUED DATE: 08/01/2024 06. OPTIMIZE HOST FACTORS: - ASSESS AND REVIEW PATIENT HISTORY FOR WOUND ETIOLOGY, CO-MORBID CONDITIONS, MEDICATION REGIME, AND SMOKING HISTORY. STATUS: COMPLETED DATE: 05/30/2024 - ASSESS LIFESTYLE FACTORS SUCH SMOKING, ALCOHOL/DRUG ABUSE, EATING HABITS/MALNUTRITION AND ACTIVITY LEVEL. 07. DRESSING SELECTION : - EVALUATE FOR DRESSING-RELATED FACTORS, SUCH AVAILABILITY, WEAR TIME, ADAPTABILITY AND USE TO BETTER OPTIMIZE WOUND HEALING AND PATIENT COMPLIANCE. STATUS: CONTINUED DATE: 08/01/2024 - CHOOSE TOPICAL TREATMENTS AND/OR DRESSING BASED ON WOUND TYPE AND APPEARANCE, PERIWOUND SKIN CONDITION, WOUND SIZE AND DEPTH, ANATOMIC LOCATION, VOLUME OF EXUDATE, EDEMA IN THE LOWER EXTREMITIES, AND RISK OR PRESENCE OF INFECTION. STATUS: CONTINUED DATE: 08/01/2024 SAMANTA RANKIN [id number] 1940 08. ADVANCED MODALITIES : - EVALUATE FOR APPROPRIATENESS OF HYPERBARIC OXYGEN THERAPY. STATUS: COMPLETED DATE: 05/30/2024 09. FALL PREVENTION : - COMPLETE FALL ASSESSMENT. STATUS: COMPLETED DATE: 05/30/2024 10. PAIN MANAGEMENT : - COMPLETE PAIN ASSESSMENT STATUS: COMPLETED DATE: 05/30/2024 11. MEASURABLE GOALS FOR WOUND HEALING AND/OR HYPERBARIC OXYGEN THERAPY : - REVIEWED, NOT APPLICABLE 12. DURATION/FREQUENCY OF WOUND CARE VISITS : - 1X WEEKLY FOR 30 DAYS STATUS: CONTINUED DATE: 08/01/2024 LOOKS GREAT - CONTINUE BEFORE EXPECT HEALED BY NEXT WEEK ELECTRONIC SIGNATURE(S) SIGNED BY: DATE: CLAIRE ESTRADA PA-C 08/01/2024 14:30:00 (PT) ENTERED BY: CLAIRE ESTRADA PA-C ON 08/01/2024 14:29:49 (PT) SAMANTA RANKIN [id number] 1940
== END ==
PROVIDERS: PCP Nurse Practitioner; Referring Provider Dermatology MOHS-Micrographic Surgery; Visit Provider Physician Assistant
DX: T81.89XA Other complications of procedures, not elsewhere classified, initial encounter (principal); S81.802A Unspecified open wound, left lower leg, initial encounter; C44.92 Squamous cell carcinoma of skin, unspecified; R60.0 Localized edema
CPT/HCPCS: 97597; 99212

== ENCOUNTER → 2024-08-08 10:40 | Outpatient (CLI) | payer MEDICARE, OTHER, SELFPAY | PROVIDERS: PCP Nurse Practitioner; Referring Provider Nurse Practitioner; Visit Provider Physician Assistant | DX: T81.89XD Other complications of procedures, not elsewhere classified, subsequent encounter (principal); S81.802D Unspecified open wound, left lower leg, subsequent encounter; C44.92 Squamous cell carcinoma of skin, unspecified; R60.0 Localized edema | CPT/HCPCS: 99212 ==